=== PATIENT | male | born 1985 | race Two or more races ===

== ENCOUNTER 2024-07-13 08:38 | Emergency (ER) | payer MEDICAID, OTHER ==
[~2024-07-13] VITALS: Ht 185.4 cm; Wt 87.6 kg
[2024-07-13 08:50] VITALS: BP 127/83; PULSE 63; RESP 16; TEMP 98.5; O2SAT 99
[2024-07-13] MEDS: SODIUM CHLORIDE 0.9% 1,000 ML IV ONE (09:56)
[2024-07-13] MEDS: KETOROLAC TROMETH 30 MG/ML 1ML VIAL IV ONE (10:03)
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
== END 2024-07-13 10:41 | disposition home or self-care (01) ==
LOC: ER 08:38
DX: R51.9 Headache, unspecified (principal)
CPT/HCPCS: 96361; 96374; 99283; J1885; J7030